=== PATIENT | male | born 1950 | race Caucasian/White ===

== ENCOUNTER 2017-09-24 21:45 | Emergency (ER) | payer OTHER ==
[~2017-09-24] VITALS: Ht 177.8 cm; Wt 113.4 kg
[~2017-09-24 21:45] MED LIST: ASCO500C49 PO; ASPI325T47 PO; ATOR20TA PO; HYDR25TA4 PO; LATA0.0015 EACHEYE; LISI40TA PO; MULT-908 OR; NAP500T PO
[2017-09-24 22:00] VITALS: BP 132/84
== END 2017-09-25 03:08 | disposition left against medical advice (07) ==
LOC: ER 21:45 → EDBD 21:45 → ER 09-25 03:08
DX: R11.2 Nausea with vomiting, unspecified (principal); J11.1 Influenza due to unidentified influenza virus with other respiratory manifestations; Z53.21 Procedure and treatment not carried out due to patient leaving prior to being seen by health care provider

== ENCOUNTER 2020-07-25 23:11 | Emergency (ER) | payer OTHER ==
[~2020-07-25] VITALS: Ht 182.9 cm; Wt 113.4 kg
[~2020-07-25 23:11] MED LIST changes: +ASPI-123 PO; -ASPI325T47 PO; -LATA0.0015 EACHEYE; +LATA0.0019 EACHEYE; -LISI40TA PO; +LISI40TA11 PO
[2020-07-26] MEDS ORDERED: MORPHINE SULFATE 4 MG/ML SYR/VIAL IV ONE (01:15)
[2020-07-26] MEDS ORDERED: ONDANSETRON HCL 4 MG/2 ML VIAL IV ONE (01:15)
[2020-07-26] MEDS ORDERED: LIDOCAINE 2% JELLY 11ml (GLYDO) UR ONE (01:30)
[2020-07-26] MEDS ORDERED: HYDROmorphone HCL 2 MG/ML VL IV ONE (01:30)
[2020-07-26 02:06] LABS: Basophils # (auto) 0.1 10 ^3/uL (0-0.2); Basophils % (auto) 0.8 % (0.0-2.0); Eosinophils # (auto) 0.3 10 ^3/uL (0-0.8); Eosinophils % (auto) 2.7 % (0.0-7.0); Hematocrit 38.3 % (41.0-53.0); Hemoglobin 13.1 g/dL (13.5-17.5); Lymphocytes % (auto) 19.5 % (10.0-50.0); Mean Corpuscular Hemoglobin 29.4 pg (28.0-32.0); Mean Corpuscular Hgb Conc. 34.2 g/dL (32.0-36.0); Monocytes # (auto) 1.1 10 ^3/uL (0-1.3); Monocytes % (auto) 10.4 % (0.0-12.0); Neutrophils # (auto) 6.8 10 ^3/uL (1.6-8.6); Neutrophils % (auto) 66.6 % (37.0-80.0); Platelet Count (auto) 224 10^3/uL (140-450); Red Blood Cells 4.45 10^6/uL (4.5-5.90); Red Cell Distribution Width 13.1 % (11.8-14.3); White Blood Cell 10.2 10^3/uL (4.4-10.8)
[2020-07-26 02:24] LABS: Albumin 2.8 g/dL (3.4-5.0); BUN/Creatinine Ratio 16.7; Calcium 8.2 mg/dL (8.5-10.1); Potassium 3.6 mmol/L (3.5-5.1)
[2020-07-26 02:30] LABS: INR 1.06 (0.9-1.15); Partial Thromboplastin Time 25.4 sec (23.0-31.2)
[2020-07-26 02:35] LABS: Bilirubin, Total 0.5 mg/dL (0.2-1.0)
[2020-07-26 02:42] LABS: Urine Bacteria NONE SEEN /hpf (None Seen); Urine Blood 3+ /uL (Negative); Urine Specific Gravity 1.017 (1.001-1.035); Urine WBC 353 /hpf (0 - 3); Urine WBC Clumps PRESENT /hpf (None Seen)
[2020-07-26] MEDS ORDERED: cefTRIAXone 1GM/50ML D5W 50 ML IV ONE (04:15)
[2020-07-26 05:03] VITALS: BP 118/73
== END 2020-07-26 06:05 | disposition home or self-care (01) ==
LOC: EDBD 23:11 → ER 23:11
DX: R33.9 Retention of urine, unspecified (principal); R07.89 Other chest pain; R10.9 Unspecified abdominal pain; N40.0 Benign prostatic hyperplasia without lower urinary tract symptoms; I10 Essential (primary) hypertension; E78.5 Hyperlipidemia, unspecified; Z79.899 Other long term (current) drug therapy; Z79.82 Long term (current) use of aspirin
CPT/HCPCS: 36415; 51702; 80053; 81001; 85025; 85610; 85730; 93005; 96365; 96375; 99285; J0696; J1170; J2270; J2405

== ENCOUNTER 2020-08-02 02:28 | Emergency (ER) | payer OTHER ==
[~2020-08-02] VITALS: Ht 177.8 cm; Wt 112.5 kg
[2020-08-02] MEDS ORDERED: HYDROmorphone HCL 2 MG/ML VL IV ONE (03:45)
[2020-08-02] MEDS ORDERED: ONDANSETRON HCL 4 MG/2 ML VIAL IV ONE (03:45)
[2020-08-02 06:00] VITALS: BP 141/74
[2020-08-03] MEDS ORDERED: TAM04C PO (13:10)
== END 2020-08-02 06:50 | disposition home or self-care (01) ==
LOC: EDBD 02:28 → ER 02:31
DX: N40.1 Benign prostatic hyperplasia with lower urinary tract symptoms (principal); R31.9 Hematuria, unspecified; E78.5 Hyperlipidemia, unspecified; I10 Essential (primary) hypertension
CPT/HCPCS: 51702; 96374; 96375; 99284; J1170; J2405

== ENCOUNTER 2020-08-02 07:58 | Emergency (ER) | payer OTHER ==
[~2020-08-02] VITALS: Ht 182.9 cm; Wt 112.5 kg
[2020-08-02 08:20] VITALS: BP 122/63
[2020-08-02] MEDS ORDERED: ACETAMINOPHEN 325 MG TAB PO ONE (09:00)
[2020-08-03] MEDS ORDERED: TAM04C PO (13:10)
== END 2020-08-02 09:53 | disposition home or self-care (01) ==
LOC: ER 07:58
DX: T83.098A Other mechanical complication of other urinary catheter, initial encounter (principal); R55 Syncope and collapse; E78.5 Hyperlipidemia, unspecified; I10 Essential (primary) hypertension
CPT/HCPCS: 51702

== ENCOUNTER 2020-08-02 19:45 | Inpatient (IN) | payer MEDICARE, OTHER ==
[~2020-08-02] VITALS: Ht 182.9 cm; Wt 122.5 kg
[2020-08-02] MEDS ORDERED: ONDANSETRON HCL 4 MG/2 ML VIAL IV ONE (22:00)
[2020-08-02] MEDS ORDERED: MORPHINE SULFATE 4 MG/ML SYR/VIAL IV ONE (22:00)
[2020-08-02] MEDS ORDERED: HYDROmorphone HCL 2 MG/ML VL IV ONE (23:00)
[2020-08-02] MEDS ORDERED: LIDOCAINE 2% JELLY 11ml (GLYDO) ONE (23:25)
[2020-08-03] MEDS ORDERED: LORazepam 2MG/ML-1ML VIAL IV ONE (03:15)
[2020-08-03] MEDS ORDERED: HYDROmorphone HCL 2 MG/ML VL IV ONE (03:15)
[2020-08-03] MEDS ORDERED: ONDANSETRON HCL 4 MG/2 ML VIAL IV PRN ×2 (09:00→22:00)
[2020-08-03] MEDS ORDERED: MORPHINE SULF INJ 2 MG/ML SYRINGE 1ML IV PRN ×4 (09:00→22:00)
[2020-08-03] MEDS ORDERED: ACETAMINOPHEN 500 MG TAB PO PRN ×2 (09:00→21:45)
[2020-08-03] MEDS ORDERED: HYDROcodone-ACET 5/325MG TAB PO PRN ×2 (09:00→22:00)
[2020-08-03] MEDS ORDERED: SODIUM CHLORIDE 0.9% 1,000 ML IV SCH (09:00)
[2020-08-03] MEDS ORDERED: cefTRIAXone 1GM/50ML D5W 50 ML IV SCH (09:00)
[2020-08-03 09:22] LABS: Basophils # (auto) 0 10 ^3/uL (0-0.2); Basophils % (auto) 0.3 % (0.0-2.0); Eosinophils # (auto) 0 10 ^3/uL (0-0.8); Eosinophils % (auto) 0.1 % (0.0-7.0); Hematocrit 39.9 % (41.0-53.0); Hemoglobin 12.9 g/dL (13.5-17.5); Lymphocytes # (auto) 0.9 10 ^3/uL (0.4-5.4); Lymphocytes % (auto) 6.3 % (10.0-50.0); Mean Corpuscular Hemoglobin 28.4 pg (28.0-32.0); Mean Corpuscular Hgb Conc. 32.4 g/dL (32.0-36.0); Mean Corpuscular Volume 87.7 fL (80.0-100.0); Monocytes # (auto) 1.2 10 ^3/uL (0-1.3); Monocytes % (auto) 8.5 % (0.0-12.0); Neutrophils # (auto) 11.5 10 ^3/uL (1.6-8.6); Neutrophils % (auto) 84.8 % (37.0-80.0); Platelet Count (auto) 275 10^3/uL (140-450); Red Blood Cells 4.55 10^6/uL (4.5-5.90); Red Cell Distribution Width 13.7 % (11.8-14.3); White Blood Cell 13.5 10^3/uL (4.4-10.8)
[2020-08-03 09:29] LABS: Albumin 3.3 g/dL (3.4-5.0); BUN/Creatinine Ratio 9.6; Calcium 8.9 mg/dL (8.5-10.1)
[2020-08-03] MEDS ORDERED: NITROGLYCERIN 0.4 MG SL TAB SL PRN ×2 (09:30→22:00)
[2020-08-03 09:34] LABS: Bilirubin, Total 0.9 mg/dL (0.2-1.0); Total Protein 7.4 g/dL (6.4-8.2)
[2020-08-03 09:38] LABS: INR 1.08 (0.9-1.15); Partial Thromboplastin Time 26.8 sec (23.0-31.2)
[2020-08-03] MEDS ORDERED: FAMOTIDINE 20 MG TAB PO SCH (10:00)
--- NOTE | 2020-08-03 12:40 | NUR ---
Telemetry admit from ER: NIKHIL DAN admitted to Telemetry unit after SBAR received. Patient oriented to MATTHEW ESTRADA RN primary RN, unit, room, bed, and unit policies regarding patient care and visiting hours. Patient now on continuous telemetry monitoring, tele box # 95 and telemetry reading on arrival to unit is SR 92. Patient placed on bedside oxygen at 3 lpm, weighed by bed scale and encouraged to call if they need something. All questions and concerns addressed, patient verbalized understanding.
--- NOTE | 2020-08-03 13:07 | NUR ---
PAGED ILDEFONSO FRANKS FREIGHT WEIGHER AT THIS TIME REGARDING PATIENT DIET. AWAITING CALL BACK.
[2020-08-03] MEDS ORDERED: TAM04C PO (13:10)
--- NOTE | 2020-08-03 15:32 | NUR ---
1,750 mL removed from suprapubic catheter at this time.
--- NOTE | 2020-08-03 16:40 | NUR ---
PER ORDERS, TORRES REMOVED. PATIENT TOLERATED WELL. SUPRAPUBIC CATHETER IN PLACE, DRAINING URINE TO GRAVITY.
[2020-08-03 17:36] VITALS: BP 107/68
--- NOTE | 2020-08-03 18:47 | NUR ---
CLOSING NOTE: PATIENT RESTING IN BED. NO S/S OF DISTRESS.
--- NOTE | 2020-08-03 19:52 | NUR ---
Opening Shift Note Assumed care of patient, asleep resting arouse to verbal stimuli very sleepy and alert. No S/S of distress/SOB or pain. Instructed on POC and to call for assist PRN, will continue to monitor for changes Q1hr and PRN.Supra pubic catheter urine output is clear, dressing dry and intact.
[2020-08-03 22:00] VITALS: BP 140/74
[2020-08-03] MEDS: SODIUM CHLORIDE 0.9% 1,000 ML IV SCH (22:51)
--- NOTE | 2020-08-04 04:13 | NUR ---
Refused [place] tab, for pain, said he has having weird dreams of this med.
[2020-08-04 05:00] VITALS: BP 111/64
--- NOTE | 2020-08-04 07:26 | NUR ---
Report given to Barbara Palacios, patient is resting no distress.
--- NOTE | 2020-08-04 07:35 | NUR ---
Opening Shift Note: Assumed care of patient. Patient asleep at this time. No S/S of distress/SOB or pain. Bed in lowest locked position, side rails up x 2, call light within reach. Patient instructed on POC and to call for assist PRN, will continue to monitor for changes Q1hr and PRN.
[2020-08-04 08:49] VITALS: BP 103/58
[2020-08-04] MEDS: FAMOTIDINE 20 MG TAB PO SCH (10:00)
[2020-08-04] MEDS: cefTRIAXone 1GM/50ML D5W 50 ML IV SCH (10:15)
--- NOTE | 2020-08-04 10:16 | NUR ---
PATIENT REFUSED 1000 PEPCID. PER PATIENT "I AM TOO TIRED TO TAKE IT RIGHT NOW, I DON'T WANT IT."
[2020-08-04] MEDS ORDERED: TAMSULOSIN HYDROCHLORIDE 0.4 MG CAP PO ONE (11:30)
[2020-08-04] MEDS ORDERED: DOXYCYCLINE 100 MG TAB/CAP PO ONE (11:30)
[2020-08-04 12:52] VITALS: BP 111/65
[2020-08-04] MEDS ORDERED: HYDROcodone-ACET 5/325MG TAB PO PRN (13:00)
[2020-08-04] MEDS: ACETAMINOPHEN 500 MG TAB PO PRN ×2 (13:00→21:16)
[2020-08-04 16:47] VITALS: BP 109/59
[2020-08-04] MEDS: SODIUM CHLORIDE 0.9% 1,000 ML IV SCH (18:07)
--- NOTE | 2020-08-04 18:50 | NUR ---
CLOSING NOTE: PATIENT RESTING IN BED. NO S/S OF DISTRESS.
--- NOTE | 2020-08-04 19:25 | NUR ---
Opening Shift Note Assumed care of patient, awake and alert x4. No S/S of distress/SOB or pain. Suprapubic catheter is in place and hung below bladder, draining yellow urine. Call light is within reach, side rails up x2, bed is in the lowest position. Instructed on POC and to call for assist PRN, will continue to monitor for changes Q1hr and PRN.
[2020-08-04] MEDS: DOXYCYCLINE 100 MG TAB/CAP PO SCH (21:16)
[2020-08-04 22:00] VITALS: BP 123/70
[2020-08-05 05:00] VITALS: BP 133/75
[2020-08-05] MEDS: SODIUM CHLORIDE 0.9% 1,000 ML IV SCH ×3 (06:43→22:36)
--- NOTE | 2020-08-05 06:55 | NUR ---
Closing note Patient is resting in bed asleep, no S/S of pain or distress noted.
--- NOTE | 2020-08-05 07:00 | NUR ---
Opening Shift Note: Assumed care of patient, awake and alert. No S/S of distress/SOB or pain. Bed in lowest locked position, side rails up x 2, call light within reach. Suprapubic catheter in place, draining. Patient instructed on POC and to call for assist PRN, will continue to monitor for changes Q1hr and PRN.
--- NOTE | 2020-08-05 07:20 | NUR ---
UA collected and sent to lab.
[2020-08-05 07:44] LABS: Urine Bacteria NONE SEEN /hpf (None Seen); Urine Blood 3+ /uL (Negative); Urine Mucus FEW (None Seen); Urine Specific Gravity 1.015 (1.001-1.035); Urine WBC 46 /hpf (0 - 3)
[2020-08-05] MEDS: FAMOTIDINE 20 MG TAB PO SCH (08:48)
[2020-08-05] MEDS: cefTRIAXone 1GM/50ML D5W 50 ML IV SCH (08:48)
[2020-08-05] MEDS: DOXYCYCLINE 100 MG TAB/CAP PO SCH ×2 (08:49→21:04)
[2020-08-05] MEDS: ACETAMINOPHEN 500 MG TAB PO PRN ×2 (08:49→21:05)
--- NOTE | 2020-08-05 08:50 | NUR ---
IV insertion: IV access obtained, via clean sterile technique by inserting 20 gauge catheter at right wrist after 1 attempt. IV secured properly. No trauma to site. Patient tolerated well. IV removal: right hand IV DC'd with clean sterile technique, catheter fully intact. Pressure dressing applied to site. Patient tolerated well.
[2020-08-05 09:26] VITALS: BP 132/75
--- NOTE | 2020-08-05 13:09 | NUR ---
DR. GONZALEZ: DR. BALTAZAR AT BEDSIDE.
[2020-08-05 14:26] VITALS: BP 128/75
[2020-08-05 16:51] VITALS: BP 137/77
[2020-08-05] MEDS: TAMSULOSIN HYDROCHLORIDE 0.4 MG CAP PO SCH (17:20)
--- NOTE | 2020-08-05 19:14 | NUR ---
CLOSING NOTE: Patient resting in bed. no S/S of distress. care endorsed.
--- NOTE | 2020-08-05 19:15 | NUR ---
Opening Shift Note Assumed care of patient, awake and alert. No S/S of distress/SOB or pain. Instructed on POC and to call for assist PRN, will continue to monitor for changes Q1hr and PRN. Patient in the lowest possible position with call light within reach. Will continue to monitor.
[2020-08-05 20:00] VITALS: BP 133/72
[2020-08-05] MEDS: TIMOLOL MAL 0.5% OPTH(EYE) SOL 5ML EACHEYE SCH (21:04)
--- NOTE | 2020-08-05 21:30 | NUR ---
Patient requested tylenol to help with sleep, patient states that he is uncomfortable in his lower abdomen due to his suprapubic cox in place. Allergies reviewed with patient, patient stated that he had a bad dream with [place] but no known allergies to tylenol. Patient to receive tylenol for discomfort, will administer and continue to monitor patient.
[2020-08-05 22:00] VITALS: BP 133/72
[2020-08-06 05:00] VITALS: BP 137/69
--- NOTE | 2020-08-06 06:49 | NUR ---
Closing note. Patient in the lowest possible position with call light within reach. No complaints of SOB or pain. Patient is comfortable, all vitals within normal limits. Patients Morales needs to be checked for kinks as patient experienced some pain when the catheter was kinked, will endorse to day shift RN.
[2020-08-06] MEDS: cefTRIAXone 1GM/50ML D5W 50 ML IV SCH (07:59)
[2020-08-06] MEDS: ACETAMINOPHEN 500 MG TAB PO PRN ×2 (07:59→21:06)
[2020-08-06] MEDS: SODIUM CHLORIDE 0.9% 1,000 ML IV SCH (09:04)
[2020-08-06 09:43] VITALS: BP 136/82
[2020-08-06] MEDS: DOXYCYCLINE 100 MG TAB/CAP PO SCH ×2 (10:05→21:05)
[2020-08-06] MEDS: FAMOTIDINE 20 MG TAB PO SCH (10:05)
[2020-08-06] MEDS: TIMOLOL MAL 0.5% OPTH(EYE) SOL 5ML EACHEYE SCH ×2 (10:06→21:05)
[2020-08-06 13:00] VITALS: BP 128/72
--- NOTE | 2020-08-06 16:13 | NUR ---
1600 08/06/20 Contacted by [facility] transfer center assessment coordinator Govind, I provided him with a verbal update on the status of the patient. Govind stated they have no available beds at this time. Govind also requested current clinical notes which I faxed to [phone].
[2020-08-06 16:49] VITALS: BP 137/75
[2020-08-06] MEDS: TAMSULOSIN HYDROCHLORIDE 0.4 MG CAP PO SCH (17:39)
--- NOTE | 2020-08-06 19:00 | NUR ---
Opening Shift Note Assumed care of patient, awake and alert. No S/S of distress/SOB or pain. Instructed on POC and to call for assist PRN, will continue to monitor for changes Q1hr and PRN. Patient in the lowest possible position with call light within reach. Suprapubic catheter examined, patient states that it is a little tender noting that he feels a slight burning sensation that has been slowly going away. Will continue to monitor patient.
[2020-08-06 20:00] VITALS: BP 135/69
[2020-08-06 22:00] VITALS: BP 135/69
--- NOTE | 2020-08-07 03:53 | NUR ---
Patient swabbed for Covid julia test per protocol for procedure. Swab walked to lab.
[2020-08-07 05:00] VITALS: BP 143/77
--- NOTE | 2020-08-07 05:31 | NUR ---
Patient swabbed for inhouse covid test, swab walked over to lab via KEY Astudillo.
[2020-08-07] MEDS: cefTRIAXone 1GM/50ML D5W 50 ML IV SCH (08:39)
[2020-08-07 09:00] VITALS: BP 145/82
[2020-08-07] MEDS: DOXYCYCLINE 100 MG TAB/CAP PO SCH ×2 (09:15→20:56)
[2020-08-07] MEDS: FAMOTIDINE 20 MG TAB PO SCH (09:15)
[2020-08-07] MEDS: TIMOLOL MAL 0.5% OPTH(EYE) SOL 5ML EACHEYE SCH ×2 (09:16→20:56)
[2020-08-07 13:00] VITALS: BP 136/67
[2020-08-07 14:04] LABS: Basophils # (auto) 0 10 ^3/uL (0-0.2); Basophils % (auto) 0.9 % (0.0-2.0); Eosinophils # (auto) 0.3 10 ^3/uL (0-0.8); Eosinophils % (auto) 5.1 % (0.0-7.0); Hematocrit 32.4 % (41.0-53.0); Lymphocytes # (auto) 1.3 10 ^3/uL (0.4-5.4); Lymphocytes % (auto) 22.8 % (10.0-50.0); Mean Corpuscular Hemoglobin 29.1 pg (28.0-32.0); Mean Corpuscular Hgb Conc. 33.8 g/dL (32.0-36.0); Mean Corpuscular Volume 86.1 fL (80.0-100.0); Monocytes # (auto) 0.5 10 ^3/uL (0-1.3); Monocytes % (auto) 8.5 % (0.0-12.0); Neutrophils # (auto) 3.5 10 ^3/uL (1.6-8.6); Neutrophils % (auto) 62.7 % (37.0-80.0); Platelet Count (auto) 207 10^3/uL (140-450); Red Blood Cells 3.77 10^6/uL (4.5-5.90); Red Cell Distribution Width 13.8 % (11.8-14.3); White Blood Cell 5.5 10^3/uL (4.4-10.8)
[2020-08-07 14:26] LABS: Albumin 2.4 g/dL (3.4-5.0); Calcium 8.5 mg/dL (8.5-10.1); Potassium 3.6 mmol/L (3.5-5.1)
[2020-08-07 14:29] LABS: BUN/Creatinine Ratio 19.2; Bilirubin, Total 0.4 mg/dL (0.2-1.0); Total Protein 6.4 g/dL (6.4-8.2)
[2020-08-07 14:38] LABS: INR 1.08 (0.9-1.15)
--- NOTE | 2020-08-07 14:50 | NUR ---
Nutrition Assessment Note Please see attached link for complete assessment Est energy needs ABW 98 [id number] kcal (23-25 kcal/kg ABW), Est protein needs: 98-107 g (1.0-1.1 g/kg ABW). Will Reassess prn Addendum: 08/07/20 at [address] Amended: Links added.
[2020-08-07 17:00] VITALS: BP 138/74
[2020-08-07] MEDS: SODIUM CHLORIDE 0.9% 1,000 ML IV SCH ×2 (17:00)
[2020-08-07] MEDS: TAMSULOSIN HYDROCHLORIDE 0.4 MG CAP PO SCH (17:51)
--- NOTE | 2020-08-07 19:00 | NUR ---
Opening Shift Note Assumed care of patient, awake and alert. No S/S of distress/SOB or pain. Instructed on POC and to call for assist PRN, will continue to monitor for changes Q1hr and PRN. Patient in the lowest possible position with call light within reach. Morales intact, no complications noted. Patient going for cystoscopy 11/12 and is to be NPO at midnight. Patient is aware and verbalizes understanding.
[2020-08-07] MEDS: ACETAMINOPHEN 500 MG TAB PO PRN (20:56)
[2020-08-07 22:00] VITALS: BP 147/80
[2020-08-08 05:00] VITALS: BP 133/77
--- NOTE | 2020-08-08 05:00 | NUR ---
Linens changed and patient cleaned with CHG wipes in preparation for patients procedure. Will endorse to day shift.
[2020-08-08] MEDS: SODIUM CHLORIDE 0.9% 1,000 ML IV SCH ×2 (05:30→21:56)
--- NOTE | 2020-08-08 07:00 | NUR ---
OPENING SHIFT NOTE RECEIVED REPORT ON THE PATIENT. AWAKE LYING IN BED. PATIENT SHOWS NO SIGNS OF DISTRESS AT THIS TIME. DISCUSSED THE PLAN OF CARE WITH THE PATIENT. BED IN LOWEST POSITION, SIDE RAILS UP X2, AND THE CALL LIGHT IS WITHIN REACH.
[2020-08-08 09:00] VITALS: BP 129/74
[2020-08-08] MEDS: cefTRIAXone 1GM/50ML D5W 50 ML IV SCH (09:00)
[2020-08-08] MEDS: TIMOLOL MAL 0.5% OPTH(EYE) SOL 5ML EACHEYE SCH ×2 (10:00→21:56)
[2020-08-08] MEDS: DOXYCYCLINE 100 MG TAB/CAP PO SCH ×2 (10:00→21:56)
[2020-08-08] MEDS: FAMOTIDINE 20 MG TAB PO SCH (10:00)
[2020-08-08] MEDS ORDERED: CIPROFLOXACIN 400MG/200ML 200 ML IV ONE (10:10)
--- NOTE | 2020-08-08 10:16 | NUR ---
PATIENT DOWN TO OR. PATIENT SHOWS NO SIGNS OF DISTRESS AT THIS TIME.
--- NOTE | 2020-08-08 11:26 | NUR ---
DR BALTAZAR AT BEDSIDE, BUT PATIENT IS DOWN FOR A PROCEDURE.
--- NOTE | 2020-08-08 11:35 | NUR ---
DR STREETER CALLED AND SAID THEY COULD NOT DO THE PROCEDURE BECAUSE THE PATIENT NEEDED AN ENEMA AND THEY DID NOT HAVE THE PROPER KIT TO DO THE BIOPSY. PROCEDURE IS RESCHEDULED FOR TOMORROW AM.
[2020-08-08 13:00] VITALS: BP 139/75
[2020-08-08 16:49] VITALS: BP 130/72
[2020-08-08] MEDS: TAMSULOSIN HYDROCHLORIDE 0.4 MG CAP PO SCH (18:23)
[2020-08-08] MEDS: ACETAMINOPHEN 500 MG TAB PO PRN (21:57)
[2020-08-08 23:43] VITALS: BP 124/70
[2020-08-09 05:29] VITALS: BP 155/78
--- NOTE | 2020-08-09 07:41 | NUR ---
closing note pt is awake alert and oriented. no c/o of pain or distress. endorsed care to day shift RN Binta.
[2020-08-09 09:00] VITALS: BP 135/77
[2020-08-09] MEDS ORDERED: FLEET ENEMA(ADULT) 135 ML PR ONE (09:00)
[2020-08-09] MEDS: FAMOTIDINE 20 MG TAB PO SCH (09:05)
[2020-08-09] MEDS: cefTRIAXone 1GM/50ML D5W 50 ML IV SCH (09:05)
[2020-08-09] MEDS: TIMOLOL MAL 0.5% OPTH(EYE) SOL 5ML EACHEYE SCH ×2 (09:05→21:21)
[2020-08-09] MEDS: DOXYCYCLINE 100 MG TAB/CAP PO SCH ×2 (09:06→21:21)
[2020-08-09] MEDS: SODIUM CHLORIDE 0.9% 1,000 ML IV SCH (12:05)
--- NOTE | 2020-08-09 13:03 | NUR ---
assessment Patient is a 69 year old male who is alert and oriented. Patients cognitive abilities are intact. Patients emotional state is stable. Prior to admission patient lived home alone and functioned independently. Patient informed me he is able to care for his own ADLs. Per patient he is aware of his transfer order and he agrees to transfer.Patient has a fww for home use. Patients pcp is Dr Childers at the [facility]. I informed patient he has a right to speak to a neonatal social worker regarding all care. I informed patient he has a right to participate in any and all discharge planning. Patient has a POA and advanced directive. Patient verbalized understanding and agreed to discharge plan Addendum: 08/09/20 at 1313 by Kristin AZEVEDO Amended: Links added.
[2020-08-09] MEDS ORDERED: CIPROFLOXACIN 400MG/200ML 200 ML IV ONE (13:23)
[2020-08-09] MEDS ORDERED: SUCCINYLCHOLINE CHLORIDE 20 MG/ML 10ML VIAL IV ONE (13:24)
[2020-08-09] MEDS ORDERED: LIDOCAINE 1% (LOCAL ANESTH.) PF 5ml SDV ONE (13:24)
[2020-08-09] MEDS ORDERED: MIDAZOLAM HCL 1MG/1ML-2 ML VIAL ONE (13:27)
[2020-08-09] MEDS ORDERED: METOCLOPRAMIDE HCL 5MG/ml INJ 2ml VIAL ONE (13:28)
[2020-08-09] MEDS ORDERED: ETOMIDATE (2MG/ML) 20ML VIAL IV ONE (13:30)
[2020-08-09] MEDS ORDERED: ROCURONIUM 10MG/ML 10ML VIAL IV ONE (13:30)
[2020-08-09] MEDS ORDERED: fentaNYL CITRATE 100 MCG/2 ML VL ONE (13:39)
[2020-08-09] MEDS ORDERED: ONDANSETRON HCL 4 MG/2 ML VIAL IV PRN (14:00)
[2020-08-09] MEDS ORDERED: HYDROmorphone HCL 2 MG/ML VL IV PRN ×2 (14:00)
[2020-08-09] MEDS ORDERED: NALOXONE HCL 0.4 MG/ML VIAL IV PRN (14:00)
[2020-08-09] MEDS ORDERED: GLYCOPYRROLATE 0.2 MG/ML 1ML VIAL ONE (14:04)
[2020-08-09] MEDS ORDERED: NEOSTIGMINE 1 MG/ML INJ (10mg/10ML VIAL) ONE (14:04)
--- NOTE | 2020-08-09 16:25 | NUR ---
Patient arrived to floor with red urine present with sediment and clots, as per the RN report from post op, md dr parks is aware.
[2020-08-09 17:00] VITALS: BP 132/74
[2020-08-09] MEDS: TAMSULOSIN HYDROCHLORIDE 0.4 MG CAP PO SCH (17:33)
[2020-08-09] MEDS ORDERED: LORA-474 PO (17:55)
[2020-08-09] MEDS ORDERED: LORATADINE 10 MG TAB PO PRN ×2 (18:00→18:15)
[2020-08-09] MEDS ORDERED: LORA-352 PO (18:11)
[2020-08-09] MEDS: LORATADINE 10 MG TAB PO PRN (18:28)
[2020-08-09] MEDS: ACETAMINOPHEN 500 MG TAB PO PRN (23:15)
[2020-08-10] VITALS (7 sets, daily range): BP systolic 108–150; BP diastolic 65–81
[2020-08-10] MEDS: SODIUM CHLORIDE 0.9% 1,000 ML IV SCH ×2 (00:40→14:46)
--- NOTE | 2020-08-10 06:51 | NUR ---
Patient lying in bed, eyes closed, respirations even and unlabored, appears asleep. Patient awakens to name and touch. No s/s of distress. Will endorse care to dayshift KEY. Addendum: 08/10/20 at 0651 by DEJUAN HERNANDEZ RN RN ADDITION: Call light within reach.
--- NOTE | 2020-08-10 07:30 | NUR ---
RECEIVED REPORT FROM NIGHT NURSE. PATIENT RESTING IN BED, NO DISTRESS NOTED. WILL CONTINUE TO MONITOR.
[2020-08-10] MEDS: cefTRIAXone 1GM/50ML D5W 50 ML IV SCH (11:30)
[2020-08-10] MEDS: FAMOTIDINE 20 MG TAB PO SCH (11:31)
[2020-08-10] MEDS: TIMOLOL MAL 0.5% OPTH(EYE) SOL 5ML EACHEYE SCH ×2 (11:31→22:50)
[2020-08-10] MEDS: DOXYCYCLINE 100 MG TAB/CAP PO SCH ×2 (11:31→22:50)
--- NOTE | 2020-08-10 14:33 | NUR ---
Nutrition Followup Note Pt wt is 120.7 kg Pt was sleeping when rounded this morning. Pt is with a Cardiac diet, appetite is good aeb 75% PO intake per RN doc. Per RN note, pt with no s/s of distress. Est energy needs ABW 98 [id number] kcal (23-25 kcal/kg ABW), Est protein needs: 98-107 g (1.0-1.1 g/kg ABW). Will Reassess prn LABS: ALB 24 L GI: Pt had 2 BMs on 08/09 per RN doc. BS: 18 mod risk. Refer to wound assessment report for further details PES: 1) Decreased nutrient needs r/t adiposity aeb pt`s high BMI of 34.5 kgm2 2) Altered nutrition related lab values r.t current chronic medical condition aeb mild hypoalb elev creat Comments Will continue to monitor PO status, skin status, pertinent labs and weight trends. Will f/u in 3-5 days 1) Refer to [facility]PD dietitan on DC 2) Continue current plan of care
[2020-08-10] MEDS: ACETAMINOPHEN 500 MG TAB PO PRN (17:17)
--- NOTE | 2020-08-10 17:17 | NUR ---
PAIN MANAGEMENT PATIENT COMPLAINING OF RIB PAIN FROM COUGHING. REQUESTING TYLENOL ONLY. PAIN 04/05. TYLENOL 500 MG PO GIVEN. WILL CONTINUE TO MONITOR.
[2020-08-10] MEDS: TAMSULOSIN HYDROCHLORIDE 0.4 MG CAP PO SCH (18:00)
--- NOTE | 2020-08-10 19:06 | NUR ---
PATIENT CARE ENDORSED TO NIGHT NURSE. PATIENT STABLE AT THIS TIME.
[2020-08-11] MEDS: SODIUM CHLORIDE 0.9% 1,000 ML IV SCH (03:20)
[2020-08-11 05:31] VITALS: BP 149/76
[2020-08-11 05:32] LABS: Basophils # (auto) 0 10 ^3/uL (0-0.2); Basophils % (auto) 0.8 % (0.0-2.0); Eosinophils # (auto) 0.4 10 ^3/uL (0-0.8); Eosinophils % (auto) 7.1 % (0.0-7.0); Hematocrit 31.1 % (41.0-53.0); Hemoglobin 10.2 g/dL (13.5-17.5); Lymphocytes # (auto) 1.4 10 ^3/uL (0.4-5.4); Lymphocytes % (auto) 25.7 % (10.0-50.0); Mean Corpuscular Hemoglobin 28.5 pg (28.0-32.0); Mean Corpuscular Hgb Conc. 32.6 g/dL (32.0-36.0); Mean Corpuscular Volume 87.2 fL (80.0-100.0); Monocytes # (auto) 0.5 10 ^3/uL (0-1.3); Monocytes % (auto) 8.8 % (0.0-12.0); Neutrophils # (auto) 3.1 10 ^3/uL (1.6-8.6); Neutrophils % (auto) 57.6 % (37.0-80.0); Nucleated Red Blood Cells % 0.1 %; Platelet Count (auto) 175 10^3/uL (140-450); Red Blood Cells 3.57 10^6/uL (4.5-5.90); Red Cell Distribution Width 14.3 % (11.8-14.3); White Blood Cell 5.4 10^3/uL (4.4-10.8)
[2020-08-11 05:53] LABS: Potassium 3.3 mmol/L (3.5-5.1)
[2020-08-11] MEDS: LORATADINE 10 MG TAB PO PRN (05:53)
[2020-08-11 06:03] LABS: Albumin 2.3 g/dL (3.4-5.0); BUN/Creatinine Ratio 18.3; Bilirubin, Total 0.5 mg/dL (0.2-1.0); Calcium 8.3 mg/dL (8.5-10.1)
--- NOTE | 2020-08-11 06:25 | NUR ---
Patient reporting 6/10 lower back pain, refusing all other ordered pain medications, requesting Tylenol. Will administer and continue to monitor.
[2020-08-11] MEDS: ACETAMINOPHEN 500 MG TAB PO PRN (06:29)
--- NOTE | 2020-08-11 07:29 | NUR ---
Patient lying in bed, awake and alert. No s/s of distress. Call light within reach. Will endorse care to dayshift RN.
--- NOTE | 2020-08-11 07:32 | NUR ---
RECEIVED REPORT FROM NIGHT NURSE. PATIENT RESTING IN BED, NO DISTRESS NOTED. WILL CONTINUE TO MONITOR.
[2020-08-11 09:00] VITALS: BP 141/70
[2020-08-11] MEDS: cefTRIAXone 1GM/50ML D5W 50 ML IV SCH (09:50)
[2020-08-11] MEDS: FAMOTIDINE 20 MG TAB PO SCH (09:50)
[2020-08-11] MEDS: DOXYCYCLINE 100 MG TAB/CAP PO SCH (09:51)
--- NOTE | 2020-08-11 10:26 | NUR ---
DOCTOR BALTAZAR AT BEDSIDE.
--- NOTE | 2020-08-11 10:27 | NUR ---
TORRES DISCHARGE PLANNING/ TEACHING SPOKE WITH PATIENT ABOUT CONVERTING TORRES CATHETER COLLECTION BAG TO SMALLER, LEG BAG. PATIENT REFUSING LEG BAG, WOULD RATHER CONTINUE WITH LARGER DRAINAGE BAG. PATIENT EDUCATED ON TORRES DRAINAGE TECHNIQUES. ALL QUESTIONS ANSWERED.
[2020-08-11 13:00] VITALS: BP 144/85
--- NOTE | 2020-08-11 14:58 | NUR ---
Discharge instructions given as ordered. Encourage to follow up with PMD as instructed. All questions and concerns addressed. Patient verbalized understanding. Medication reconciliation form completed and copy given to patient. Home medications held in Pharmacy returned to patient. IV removed with catheter intact, pressure dressing applied, cox catheter LEFT IN PLACE, PER DOCTOR'S ORDERS. Telemetry unit returned to ICU. Patient taken to vehicle via wheelchair with all personal belongings, accompanied by staff member. No distress noted at time of departure.
== END 2020-08-11 15:00 | disposition home or self-care (01) | DRG 698 ==
LOC: ER 19:45 → EDUNIT# 19:45 → TELE 19:46 → ER 08-03 10:01 → TELE-WESTW 08-03 12:40
PROVIDERS: ADMIT Nurse Practitioner Acute Care; ATTEND Family Medicine
PROC: 0T9B30Z Drainage of Bladder with Drainage Device, Percutaneous Approach (ICD-10-PCS; principal; 2020-08-03)
PROC: 0VB03ZX Excision of Prostate, Percutaneous Approach, Diagnostic (ICD-10-PCS; 2020-08-09)
PROC: 0TPB80Z Removal of Drainage Device from Bladder, Via Natural or Artificial Opening Endoscopic (ICD-10-PCS; 2020-08-09)
PROC: 0T9B80Z Drainage of Bladder with Drainage Device, Via Natural or Artificial Opening Endoscopic (ICD-10-PCS; 2020-08-09 13:26)
DX: T83.091A Other mechanical complication of indwelling urethral catheter, initial encounter (principal); A41.9 Sepsis, unspecified organism; N13.8 Other obstructive and reflux uropathy; E86.0 Dehydration; K59.00 Constipation, unspecified; R55 Syncope and collapse; E78.5 Hyperlipidemia, unspecified; I10 Essential (primary) hypertension; I25.10 Atherosclerotic heart disease of native coronary artery without angina pectoris; Z68.34 Body mass index [BMI] 34.0-34.9, adult; M19.90 Unspecified osteoarthritis, unspecified site; N40.1 Benign prostatic hyperplasia with lower urinary tract symptoms; N41.9 Inflammatory disease of prostate, unspecified; R33.8 Other retention of urine; N30.81 Other cystitis with hematuria; H81.10 Benign paroxysmal vertigo, unspecified ear; E66.9 Obesity, unspecified; Z20.828 Contact with and (suspected) exposure to other viral communicable diseases; I25.2 Old myocardial infarction; Z79.82 Long term (current) use of aspirin; Z79.899 Other long term (current) drug therapy; Z80.8 Family history of malignant neoplasm of other organs or systems; Z82.49 Family history of ischemic heart disease and other diseases of the circulatory system; Z83.3 Family history of diabetes mellitus; Z83.511 Family history of glaucoma; Z85.841 Personal history of malignant neoplasm of brain
CPT/HCPCS: 36415; 51702; 71045; 74176; 76942; 78306; 80053; 81001; 84154; 85025; 85610; 85730; 87040; 87086; 87426; 93005; 96365; 96375; 96376; G0378; J0330; J0696; J2250; J2405

== ENCOUNTER 2024-03-18 03:19 | Emergency (ER) | payer MEDICARE ==
[~2024-03-18] VITALS: Ht 182.9 cm; Wt 95.0 kg
[~2024-03-18 03:19] MED LIST changes: -LATA0.0019 EACHEYE; +LATA0.008 EACHEYE; -LISI40TA11 PO; +LISI40TA16 PO; +LORA10TA6 PO; +TAMS-35 PO
[2024-03-18 04:10] VITALS: PULSE 64; RESP 12; TEMP 98.8; O2SAT 98
[2024-03-18 04:33] LABS: Urine Bacteria FEW /hpf (None Seen); Urine Blood 2+ /uL (Negative); Urine Clarity Turbid (Clear); Urine Color Light-Yellow (Yellow); Urine Protein, UAD 1+ (Negative); Urine Specific Gravity 1.013 (1.001-1.035); Urine Urobilinogen Normal (Negative); Urine WBC 300 /hpf (0 - 3); Urine WBC Clumps PRESENT /hpf (None Seen)
[2024-03-18] MEDS ORDERED: CEPH500C PO (04:45)
[2024-03-18] MEDS: cefTRIAXone W LIDOCAINE 1 GM IM IM ONE (04:51)
[2024-03-18] MEDS: LIDOCAINE 2%HCL (LOCAL ANESTH.) INJ 10ml MDV ONE (04:52)
[2024-03-18] MEDS: cefTRIAXone SOD 1,000 MG VL ONE (04:52)
[2024-03-18 05:00] VITALS: BP 126/67; PULSE 66; RESP 12; O2SAT 97
== END 2024-03-18 05:25 | disposition home or self-care (01) ==
LOC: EDBD 03:19 → ER 03:19
DX: T83.098A Other mechanical complication of other urinary catheter, initial encounter (principal); E78.5 Hyperlipidemia, unspecified; I10 Essential (primary) hypertension; N39.0 Urinary tract infection, site not specified; N31.9 Neuromuscular dysfunction of bladder, unspecified
CPT/HCPCS: 51702; 81001; 96372; 99284; J0696; J2001

== ENCOUNTER 2024-06-27 02:53 | Inpatient (IN) | payer MEDICARE ==
[~2024-06-27] VITALS: Ht 182.9 cm; Wt 95.1 kg
[~2024-06-27 02:53] MED LIST changes: +CEPH500C PO
[2024-06-27 06:35] LABS: Chloride 107 mmol/L (98-107); Sodium 137 mmol/L (136-145)
[2024-06-27 06:36] LABS: Anion Gap 9 (5-15); Calcium 10.3 mg/dL (8.7-10.4); Carbon Dioxide 21 mmol/L (20-31)
[2024-06-27 06:41] LABS: BUN/Creatinine Ratio 12.6 (10.0-20.0); Blood Urea Nitrogen 27 mg/dL (9-23); Glucose 115 mg/dL (74-106)
[2024-06-27 06:45] LABS: Basophils # (auto) 0.2 10 ^3/uL (0-0.2); Basophils % (auto) 0.9 % (0.0-2.0); Eosinophils # (auto) 0 10 ^3/uL (0-0.8); Hematocrit 36.2 % (41.0-53.0); Hemoglobin 12.7 g/dL (13.5-17.5); Lymphocytes # (auto) 1.6 10 ^3/uL (0.4-5.4); Lymphocytes % (auto) 8.5 % (10.0-50.0); Mean Corpuscular Hemoglobin 30.7 pg (28.0-32.0); Mean Corpuscular Volume 87.8 fL (80.0-100.0); Monocytes # (auto) 1.5 10 ^3/uL (0-1.3); Monocytes % (auto) 7.7 % (0.0-12.0); Neutrophils # (auto) 15.8 10 ^3/uL (1.6-8.6); Neutrophils % (auto) 82.9 % (37.0-80.0); Nucleated Red Blood Cells % 0.1 %; Platelet Count (auto) 167 10^3/uL (140-450); Red Blood Cells 4.13 10^6/uL (4.5-5.90); Red Cell Distribution Width 15.3 % (11.8-14.3)
[2024-06-27 08:03] LABS: Urine Bacteria FEW /hpf (None Seen); Urine Blood TRACE /uL (Negative); Urine Clarity Turbid (Clear); Urine Color Yellow (Yellow); Urine Protein, UAD 2+ (Negative); Urine Specific Gravity 1.017 (1.001-1.035); Urine Urobilinogen Normal (Negative); Urine WBC 405 /hpf (0 - 3); Urine WBC Clumps PRESENT /hpf (None Seen)
[2024-06-27] MEDS: SULFAMETH-TRIMETH 80/16MG-ML 15 ML in D5W 5% 500 ML IV ONE (09:43)
[2024-06-27] MEDS ORDERED: DOCUSATE SOD 100 MG CAP PO PRN (11:00)
[2024-06-27] MEDS ORDERED: NITROGLYCERIN 0.4 MG SL TAB SL PRN (11:00)
[2024-06-27] MEDS ORDERED: ONDANSETRON HCL 4 MG/2 ML VIAL IV PRN (11:00)
[2024-06-27] MEDS ORDERED: MORPHINE SULFATE INJ 2 MG/ml SYRG IV PRN (11:00)
[2024-06-27 11:30] VITALS: PULSE 81; RESP 16; O2SAT 98
[2024-06-27] MEDS: LACTULOSE 20Gm/30ML SOLN PO ONE (12:06)
[2024-06-27] MEDS: LACTULOSE 20Gm/30ML SOLN PO SCH (12:07)
[2024-06-27] MEDS: SODIUM CHLORIDE 0.9% 1,000 ML IV SCH (12:07)
[2024-06-27] MEDS: ENOXAPARIN SOD 40 MG/0.4 ML SYRINGE SC SCH (14:14)
[2024-06-27] MEDS: levoFLOXacin 500MG 100 ML IV ONE (14:14)
[2024-06-27 17:43] VITALS: BP 127/73; PULSE 96; O2SAT 97
[2024-06-27 19:30] VITALS: RESP 17
[2024-06-27 21:00] VITALS: BP 137/64; PULSE 84; RESP 18; TEMP 97.3; O2SAT 97
[2024-06-28] VITALS (8 sets, daily range): BP systolic 120–149; BP diastolic 66–75; PULSE 72–87; RESP 18–20; TEMP 98.4–99.3; O2SAT 95–99
[2024-06-28 05:56] LABS: Basophils # (auto) 0 10 ^3/uL (0-0.2); Basophils % (auto) 0.2 % (0.0-2.0); Eosinophils # (auto) 0.1 10 ^3/uL (0-0.8); Eosinophils % (auto) 1.3 % (0.0-7.0); Hematocrit 31.3 % (41.0-53.0); Hemoglobin 10.8 g/dL (13.5-17.5); Lymphocytes # (auto) 1.3 10 ^3/uL (0.4-5.4); Lymphocytes % (auto) 11.9 % (10.0-50.0); Mean Corpuscular Hemoglobin 30.3 pg (28.0-32.0); Mean Corpuscular Hgb Conc. 34.4 g/dL (32.0-36.0); Mean Corpuscular Volume 87.9 fL (80.0-100.0); Monocytes # (auto) 0.7 10 ^3/uL (0-1.3); Neutrophils # (auto) 8.5 10 ^3/uL (1.6-8.6); Neutrophils % (auto) 79.6 % (37.0-80.0); Nucleated Red Blood Cells % 0.1 %; Platelet Count (auto) 136 10^3/uL (140-450); Red Blood Cells 3.56 10^6/uL (4.5-5.90); Red Cell Distribution Width 15.1 % (11.8-14.3); White Blood Cell 10.7 10^3/uL (4.4-10.8)
[2024-06-28 06:18] LABS: Albumin 3.9 g/dL (3.2-4.8); Alkaline Phosphatase 57 U/L (46-116); Anion Gap 8 (5-15); Aspartate Aminotransferase 14 U/L (13-40); BUN/Creatinine Ratio 12.9 (10.0-20.0); Bilirubin, Total 0.5 mg/dL (0.2-1.0); Blood Urea Nitrogen 26 mg/dL (9-23); Calcium 9.2 mg/dL (8.7-10.4); Carbon Dioxide 21 mmol/L (20-31); Chloride 110 mmol/L (98-107); Glucose 97 mg/dL (74-106); Potassium 3.7 mmol/L (3.5-5.1); Sodium 139 mmol/L (136-145); Total Protein 7.1 g/dL (5.7-8.2)
[2024-06-28 06:29] LABS: Alanine Aminotransferase < 9 U/L (7-40)
[2024-06-28] MEDS: levoFLOXacin 500MG 100 ML IV SCH (08:11)
[2024-06-28 10:24] LABS: Triglycerides 93 mg/dL (< 150)
[2024-06-28 10:25] LABS: LDL Cholesterol 82 mg/dL (< 100)
[2024-06-28 10:26] LABS: Cholesterol 148 mg/dL (< 200); HDL Cholesterol 49 mg/dL (40-59)
[2024-06-28] MEDS: cefTRIAXone 1GM/50ML D5W 50 ML IV SCH (11:00)
[2024-06-28 12:18] LABS: Amphetamine Screen, Urine Neg (NEGATIVE); Barbiturate Scree,Urine Pos (NEGATIVE); Benzodiazephine Screen, Urine Neg (NEGATIVE); Cannabinoid Screen, Urine Neg (NEGATIVE); Cocaine Screen, Urine Neg (NEGATIVE); Opiate Scree,Urine Neg (NEGATIVE); Phencyclidine Screen, Urine Neg (NEGATIVE)
[2024-06-28] MEDS: ACETAMINOPHEN 325 MG TAB PO PRN (16:03)
[2024-06-28] MEDS: LATANOPROST 0.005 % OPTH(EYE) SOL 2.5ML EACHEYE SCH (16:03)
[2024-06-28] MEDS: PRIMIDONE 50 MG TAB PO ONE ×2 (16:53→23:00)
[2024-06-29 01:00] VITALS: BP 124/59; PULSE 92; RESP 18; TEMP 101.4; O2SAT 96
[2024-06-29] MEDS: ACETAMINOPHEN 325 MG TAB PO PRN (01:30)
[2024-06-29] MEDS: POLYETHYLENE GLYCOL 17 GM PWDR PO ONE (01:30)
[2024-06-29 02:13] LABS: Basophils # (auto) 0 10 ^3/uL (0-0.2); Basophils % (auto) 0.5 % (0.0-2.0); Eosinophils # (auto) 0.1 10 ^3/uL (0-0.8); Eosinophils % (auto) 1.8 % (0.0-7.0); Hematocrit 30.8 % (41.0-53.0); Hemoglobin 10.7 g/dL (13.5-17.5); Lymphocytes # (auto) 0.7 10 ^3/uL (0.4-5.4); Lymphocytes % (auto) 15.3 % (10.0-50.0); Mean Corpuscular Hemoglobin 30.5 pg (28.0-32.0); Mean Corpuscular Hgb Conc. 34.7 g/dL (32.0-36.0); Monocytes # (auto) 0.4 10 ^3/uL (0-1.3); Monocytes % (auto) 7.7 % (0.0-12.0); Neutrophils # (auto) 3.5 10 ^3/uL (1.6-8.6); Neutrophils % (auto) 74.7 % (37.0-80.0); Platelet Count (auto) 137 10^3/uL (140-450); White Blood Cell 4.7 10^3/uL (4.4-10.8)
[2024-06-29 05:00] VITALS: BP 130/69; PULSE 78; RESP 18; TEMP 98.2; O2SAT 97
[2024-06-29 06:16] LABS: Anion Gap 8 (5-15); Carbon Dioxide 21 mmol/L (20-31); Chloride 110 mmol/L (98-107); Potassium 3.8 mmol/L (3.5-5.1); Sodium 139 mmol/L (136-145)
[2024-06-29 06:17] LABS: Calcium 9.4 mg/dL (8.7-10.4)
[2024-06-29 06:21] LABS: Glucose 104 mg/dL (74-106)
[2024-06-29 06:22] LABS: BUN/Creatinine Ratio 14.1 (10.0-20.0); Blood Urea Nitrogen 24 mg/dL (9-23)
[2024-06-29 09:05] VITALS: BP 134/73; PULSE 79; RESP 20; TEMP 98.5; O2SAT 97
[2024-06-29] MEDS: levoFLOXacin 250MG 50 ML IV ONE (10:12)
[2024-06-29] MEDS ORDERED: LEVO250T58 PO (12:05)
[2024-06-29] MEDS ORDERED: POLY335015 PO (12:05)
[2024-06-29 12:35] VITALS: BP 132/68; PULSE 80; RESP 18; TEMP 98; O2SAT 98
== END 2024-06-29 14:33 | disposition home or self-care (01) | DRG 872 ==
LOC: ER 02:53 → EDBD 02:53 → OVERFLOW 10:54 → WEST WING 16:48
PROVIDERS: ADMIT Internal Medicine; ATTEND Internal Medicine
DX: A41.9 Sepsis, unspecified organism (principal); N30.00 Acute cystitis without hematuria; N17.9 Acute kidney failure, unspecified; N41.0 Acute prostatitis; K59.00 Constipation, unspecified; I10 Essential (primary) hypertension; E78.5 Hyperlipidemia, unspecified; G25.0 Essential tremor; H40.9 Unspecified glaucoma; G89.29 Other chronic pain; M54.2 Cervicalgia; K80.20 Calculus of gallbladder without cholecystitis without obstruction; R33.8 Other retention of urine; N40.1 Benign prostatic hyperplasia with lower urinary tract symptoms; Z79.899 Other long term (current) drug therapy; W01.0XXA Fall on same level from slipping, tripping and stumbling without subsequent striking against object, initial encounter; Y93.89 Activity, other specified; Y92.89 Other specified places as the place of occurrence of the external cause; Y99.8 Other external cause status
CPT/HCPCS: 36415; 70450; 70486; 71250; 72125; 74176; 80048; 80053; 80061; 80307; 81001; 82306; 82607; 83036; 84443; 84484; 85025; 87086; 87088; 87186; G0378; J1956; J3490

== ENCOUNTER → 2024-11-07 | Outpatient (CLI) | payer MEDICARE ==
[~2024-11-07] MED LIST changes: -ASPI-123 PO; -ATOR20TA PO; -CEPH500C PO; -HYDR25TA4 PO; +LEVO250T58 PO; -LISI40TA16 PO; -LORA10TA6 PO; -NAP500T PO; +POLY335015 PO; -TAMS-35 PO
[2024-11-07 10:00] LABS: Basophils # (auto) 0 10 ^3/uL (0-0.2); Basophils % (auto) 0.8 % (0.0-2.0); Eosinophils # (auto) 0.2 10 ^3/uL (0-0.8); Eosinophils % (auto) 4.2 % (0.0-7.0); Hemoglobin 14.7 g/dL (13.5-17.5); Lymphocytes # (auto) 1.4 10 ^3/uL (0.4-5.4); Mean Corpuscular Hemoglobin 29.9 pg (28.0-32.0); Mean Corpuscular Hgb Conc. 33.4 g/dL (32.0-36.0); Mean Corpuscular Volume 89.6 fL (80.0-100.0); Monocytes # (auto) 0.3 10 ^3/uL (0-1.3); Monocytes % (auto) 6.4 % (0.0-12.0); Neutrophils % (auto) 60.6 % (37.0-80.0); Nucleated Red Blood Cells % 0.1 %; Platelet Count (auto) 189 10^3/uL (140-450); Red Blood Cells 4.92 10^6/uL (4.5-5.90); Red Cell Distribution Width 14.4 % (11.8-14.3)
[2024-11-07 11:44] LABS: Anion Gap 7 (5-15); Carbon Dioxide 25 mmol/L (20-31); Chloride 106 mmol/L (98-107); Potassium 4.3 mmol/L (3.5-5.1); Sodium 138 mmol/L (136-145)
[2024-11-07 11:47] LABS: BUN/Creatinine Ratio 16.8 (10.0-20.0); Glucose 86 mg/dL (74-106)
[2024-11-07 11:48] LABS: Albumin 4.5 g/dL (3.2-4.8)
[2024-11-07 11:49] LABS: Bilirubin, Total 0.5 mg/dL (0.2-1.0)
[2024-11-07 11:59] LABS: Alanine Aminotransferase < 9 U/L (7-40); Aspartate Aminotransferase 10 U/L (13-40); Blood Urea Nitrogen 24 mg/dL (9-23); Calcium 10.5 mg/dL (8.7-10.4)
[2024-11-07 12:29] LABS: Alkaline Phosphatase 61 U/L (46-116)
[2024-11-08 10:06] LABS: PSA Free 1.26 ng/mL; Prostate Specific Antigen 6.6 ng/mL (0.0-4.0)
[2024-11-08 13:19] LABS: HDL Cholesterol 58 mg/dL (40-59)
[2024-11-08 13:28] LABS: Cholesterol 225 mg/dL (< 200); LDL Cholesterol 147 mg/dL (< 100); Triglycerides 156 mg/dL (< 150)
== END | disposition home or self-care (01) ==
LOC: LAB 09:22
PROVIDERS: ATTEND Nurse Practitioner Family
DX: I10 Essential (primary) hypertension (principal); E78.5 Hyperlipidemia, unspecified; R35.1 Nocturia
CPT/HCPCS: 36415; 80053; 80061; 84153; 84154; 84443; 85025

== ENCOUNTER 2025-07-22 09:06 | Emergency (ER) | payer OTHER ==
[~2025-07-22] VITALS: Ht 182.9 cm; Wt 94.0 kg
--- NOTE | 2025-07-22 09:42 | ED.PDOC ---
General HPI Comments This is a 74-year-old gentleman that comes in with pain with urination. Patient states that he just had his catheter changed a couple of days ago by a nurse in preparation for a biopsy coming up on . Normally he has no discomfort since the catheter has been placed he is having burning fever chills and low back pain.. Per patient catheter has been draining well. Chief Complaint: Penile Problem Time Seen by MD: 09:38 [facility] Provider[facility] Reviewed notes: Nurses Notes, Medications, Allergies Allergies: Coded Allergies: NO KNOWN ALLERGIES (Unverified , 08/08/20) Home Meds Active Scripts Polyethylene Glycol 3350 (Miralax) 17 Gm Pow, 17 GM PO DAILY for 30 Days, #30 POW 1 Refill Prov:CRISTINA AGUILAR RESIDENT 06/29/24 Levofloxacin Hemihydrate (LEVOFLOXACIN) 250 Mg Tab, 250 MG PO DAILY for 42 Days, #42 TAB Prov:CRISTINA AGUILAR RESIDENT 06/29/24 Reported Medications Latanoprost (LATANOPROST) 0.005 % Guerline, 1 DROP EACHEYE QPM, #7.5 ML 3 Refills 03/12/16 Ascorbic Acid (VITAMIN C) 500 Mg Cap, 500 MG PO, CAP 03/12/16 Multiple Vitamins W/ Minerals (CENTRUM SILVER ADULT 50+) Adult 50 Tab, 1 50 OR, TAB 03/12/16 Information Source: Patient Mode of Arrival: EMS Past Medical History PAST MEDICAL HISTORY: High Lipids, HTN Past Medical History (Other): Retention of urine Family History Family History: Reviewed,noncontributory to illness, Family hx of DM, Family hx of Cancer Social History Smoker: Non-Smoker Alcohol: Occasionally Drugs: Denies Drug Use Lives In: Home Constitutional: reports: chills, fever Genitourinary: reports: burning, dysuria, flank pain, penile sore Neurological: reports: dizziness All Other Systems: Reviewed and Negative Physical Exam General Appearance: No Apparent Distress, Normal HEENT: Normal ENT Inspection, Pale Conjuntivae (R), Pharynx Normal, TMs Normal Neck: Full Range of Motion, Non-Tender Respiratory: Lungs Clear, No Respiratory Distress, Normal Breath Sounds Cardiovascular: Regular Rate/Rhythm Breast Exam: Deferred Gastrointestinal: No Organomegaly, Normal Bowel Sounds, Suprapubic, Tenderness Genitalia: Other (Morales catheter) Pelvic: Deferred Rectal: Deferred Extremities: Normal inspection, Normal range of motion, Non-tender, Other (Wheelchair) Neurologic: Alert, No Motor Deficits, Normal Mood, No Sensory Deficits Cerebellar Function: Normal Reflexes: NOT DONE Skin: Dry, Warm Lymphatic: No Adenopathy Was a procedure done? Was a procedure done?: No Differential Diagnosis Kidney stone (Female): N/A X-Ray, Labs, Meds, VS Vital Signs Date Time Temp Pulse Resp B/P (MAP) Pulse Ox O2 Delivery O2 Flow Rate FiO2 07/22/25 10:45 73 18 97 Room Air 07/22/25 10:45 98.2 73 18 141/75 (97) 97 98.2 07/22/25 09:16 97.6 86 16 144/87 98 97.6 Lab Test 07/22/25 10:36 07/22/25 10:34 Range/Units White Blood Count 12.1 H 4.4-10.8 10^3/uL Red Blood Count 4.21 L 4.5-5.90 10^6/uL Hemoglobin 13.3 L 13.5-17.5 g/dL Hematocrit 39.4 L 41.0-53.0 % Mean Corpuscular Volume 93.6 80.0-100.0 fL Mean Corpuscular Hemoglobin 31.5 28.0-32.0 pg Mean Corpuscular Hemoglobin Concent 33.7 32.0-36.0 g/dL Red Cell Distribution Width 14.8 H 11.8-14.3 % Platelet Count 173 140-450 10^3/uL Mean Platelet Volume 7.9 6.9-10.8 fL Neutrophils (%) (Auto) 83.4 H 37.0-80.0 % Lymphocytes (%) (Auto) 9.1 L 10.0-50.0 % Monocytes (%) (Auto) 6.7 0.0-12.0 % Eosinophils (%) (Auto) 0.6 0.0-7.0 % Basophils (%) (Auto) 0.2 0.0-2.0 % Neutrophils # (Auto) 10.1 H 1.6-8.6 10 ^3/uL Lymphocytes # (Auto) 1.1 0.4-5.4 10 ^3/uL Monocytes # (Auto) 0.8 0-1.3 10 ^3/uL Eosinophils # (Auto) 0.1 0-0.8 10 ^3/uL Basophils # (Auto) 0 0-0.2 10 ^3/uL Nucleated Red Blood Cells 0.0 % Sodium Level 137 136-145 mmol/L Potassium Level 4.2 3.5-5.1 mmol/L Chloride Level 104 98-107 mmol/L Carbon Dioxide Level 24 20-31 mmol/L Anion Gap 9 5-15 Blood Urea Nitrogen Pending Creatinine Pending Glomerular Filtration Rate Calc Pending BUN/Creatinine Ratio Pending Serum Glucose Pending Calcium Level 9.0 8.7-10.4 mg/dL Urine Color Light-brown Yellow Urine Clarity Turbid H Clear Urine pH 6.5 5.0-9.0 Urine Specific [place] 1.008 1.001-1.035 Urine Protein 1+ H Negative Urine Ketones Negative Negative Urine Blood 3+ H Negative /uL Urine Nitrite 1+ H Negative Urine Bilirubin Negative Negative Urine Urobilinogen Normal Negative mg/dL Urine Leukocyte Esterase 3+ Negative /uL Urine RBC 81 0 - 3 /hpf Urine Microscopic WBC 229 H 0-3 /HPF Urine Squamous Epithelial Cells Few <5 /hpf Urine Bacteria None seen None Seen /hpf Urine Glucose Normal Normal mg/dL X-Ray, Labs, Meds, VS Comment Patient seen and examined by me. Patient with a recent catheter change at two three days ago. Since then he has been having pain with urination fevers and chills. Patient has never had any of these symptoms prior. We will change the Morales catheter today send a new urinalysis. Patient's urine came back with a an infection. I will start him on Cipro antibiotics. His white count was slightly elevated secondary to his infection creatinine was also slightly elevated I believe because he has BPH causing some obstruction. He has follow up with Urology next week for a biopsy and possible discussion on a bladder outlet procedure.. Time of 1ST Reevaluation: 11:24 Reevaluation 1ST: Improved Patient Education/Counseling: Diagnosis, Treatment, Prognosis, Need For Follow Up Family Education/Counseling: No Family Present SEPSIS Sepsis Screen Date sepsis recognized/suspect: Jul 22, 2025 Time Sepsis recognized/suspect: 918 Recent Procedure: No On Antibiotic Therapy: No Respiratory Rate >20: No Heart Rate >90: No Temp<36 C (96.8 F) or >38.3 C: No SBP <90 or MAP <65 mmHG: No New Acute Mental Status Change: No Is the patient on CPAP, BIPAP,: No Physician Orders Basic Metabolic Panel (07/22/25 09:42) Vital Signs Date Time Temp Pulse Resp B/P (MAP) Pulse Ox O2 Delivery O2 Flow Rate FiO2 07/22/25 10:45 73 18 97 Room Air 07/22/25 10:45 98.2 73 18 141/75 (97) 97 98.2 07/22/25 09:16 97.6 86 16 144/87 98 97.6 Laboratory Tests Test 07/22/25 10:36 White Blood Count 12.1 10^3/uL (4.4-10.8) H Departure 1 Departure Time of Disposition: 11:24 Impression: Primary Impression: Urinary retention Additional Impressions: UTI (urinary tract infection) Benign prostatic hyperplasia with incomplete bladder emptying Disposition: 01 HOME / SELF CARE / HOMELESS Condition: Good Additional Instructions: Finish all the antibiotics as directed Drink lots of liquids to keep your catheter flushed Follow up with urologist for your next procedure e-Prescriptions Ciprofloxacin Hcl (Cipro) 500 Mg Tab 1 TAB PO BID for 7 Days, #14 TAB Prov: SJ SHORE 07/22/25 Discharged With: Self Critical Care Note Critical Care Time?: No Stability Stability form required: SJ Vigil Jul 22, 2025 09:42
[2025-07-22 10:45] VITALS: BP 141/75; PULSE 73; RESP 18; TEMP 98.2; O2SAT 97
[2025-07-22 11:12] LABS: Hematocrit 39.4 % (41.0-53.0); Hemoglobin 13.3 g/dL (13.5-17.5); Mean Corpuscular Hemoglobin 31.5 pg (28.0-32.0); Mean Corpuscular Volume 93.6 fL (80.0-100.0); Nucleated Red Blood Cells % 0.0 %
[2025-07-22 11:13] LABS: Chloride 104 mmol/L (98-107); Potassium 4.2 mmol/L (3.5-5.1); Sodium 137 mmol/L (136-145)
[2025-07-22 11:14] LABS: Urine Protein, UAD 1+ (Negative)
[2025-07-22 11:14] LABS: Anion Gap 9 (5-15); Calcium 9.0 mg/dL (8.7-10.4); Carbon Dioxide 24 mmol/L (20-31)
[2025-07-22 11:19] LABS: BUN/Creatinine Ratio 13.3 (10.0-20.0); Blood Urea Nitrogen 22 mg/dL (9-23); Glucose 95 mg/dL (74-106)
[2025-07-22] MEDS ORDERED: CIPR-173 PO (11:26)
== END 2025-07-22 11:49 | disposition home or self-care (01) ==
LOC: EDBD 09:06 → ER 09:09
DX: N39.0 Urinary tract infection, site not specified (principal); R33.9 Retention of urine, unspecified; N40.1 Benign prostatic hyperplasia with lower urinary tract symptoms; I10 Essential (primary) hypertension; E78.5 Hyperlipidemia, unspecified; F10.90 Alcohol use, unspecified, uncomplicated; Z79.899 Other long term (current) drug therapy; Y90.9 Presence of alcohol in blood, level not specified
CPT/HCPCS: 36415; 51702; 80048; 81001; 85025; 99284; A4315